=== PATIENT | female | born 1950 | race Caucasian/White ===

== ENCOUNTER → 2017-04-04 | Outpatient (CLI) | payer OTHER ==
[~2017-04-04] MED LIST: ALBU8.5H8 INH; CEFD300C37 PO; FOLI-17 PO; INFL100V IV; LEVO750T26 PO; METH2.5T PO; ONDA4TAB10 PO; PRED5TAB PO; TRIA50CA PO
== END | disposition home or self-care (01) ==
LOC: RAD 10:27 → MERGE 11:00
PROVIDERS: ATTEND Physician Assistant
DX: M22.41 Chondromalacia patellae, right knee (principal); M71.21 Synovial cyst of popliteal space [Baker], right knee; M17.11 Unilateral primary osteoarthritis, right knee; M25.461 Effusion, right knee

== ENCOUNTER 2017-05-07 05:20 | Inpatient (IN) | payer OTHER, MEDICARE ==
[2017-05-06 08:57] VITALS: BP 135/89
[~2017-05-07] VITALS: Ht 167.6 cm; Wt 72.0 kg
[~2017-05-07 05:20] MED LIST changes: +ASCO100019 PO; +B CO1TAB14 PO; +BIOT10TA PO; +CALC1CAP8 PO; +CHOL100011 PO; +LACT1CAP24 PO; +SELE200T10 PO; +[UNRECOGNIZED DRUG - OTHER] PO; +[UNRECOGNIZED DRUG - OTHER] PO; +[UNRECOGNIZED DRUG - OTHER] PO; +magnesium PO; +potassium PO
[2017-05-07] MEDS ORDERED: LACTATED RINGERS 1,000 ML IV SCH (05:56)
[2017-05-07] MEDS ORDERED: LIDOCAINE-MPF 1%, 2ML INFIL ONE (06:00)
[2017-05-07] MEDS ORDERED: VANCOMYCIN PER PHARMACY MC ONE (06:00)
[2017-05-07] MEDS ORDERED: MIDAZOLAM 1 MG/ML, 2ML ONE (06:26)
[2017-05-07] MEDS ORDERED: FENTANYL PF 250 MCG/5ML ONE ×2 (06:27)
[2017-05-07] MEDS ORDERED: VANCOMYCIN PMX 1GM/200ML 200 ML IV ONE (06:30)
[2017-05-07] MEDS ORDERED: PNEUMOCOCCAL 23 VACCINE IM-VACC ONE (06:30)
[2017-05-07] MEDS ORDERED: GABAPENTIN 300 MG CAPSULE ONE (06:38)
[2017-05-07] MEDS ORDERED: KETAMINE 10 MG/ML, 20ML ONE (07:00)
[2017-05-07] MEDS ORDERED: DIAZEPAM 5 MG TABLET PO ONE (07:00)
[2017-05-07] MEDS ORDERED: TAMSULOSIN 0.4 MG CAP.ER.24H PO ONE (07:00)
[2017-05-07] MEDS ORDERED: GABAPENTIN 300 MG CAPSULE PO ONE (07:00)
[2017-05-07] MEDS ORDERED: ACETAMINOPHEN 500 MG TABLET PO ONE (07:00)
[2017-05-07] MEDS ORDERED: FAMOTIDINE 20 MG TABLET PO ONE (07:00)
[2017-05-07] MEDS ORDERED: METOCLOPRAMIDE 10MG TABLET PO ONE (07:00)
[2017-05-07] MEDS ORDERED: TRANEXAMIC ACID 100 MG/ML, 10ML ONE ×3 (07:02)
[2017-05-07] MEDS ORDERED: EPINEPHRINE 1 MG/ML, 1ML ONE (07:02)
[2017-05-07] MEDS ORDERED: BUPIVACAINE/PF 0.5% ONE (07:02)
[2017-05-07] MEDS ORDERED: NEOSPORIN OINT, 15GM ONE (08:07)
[2017-05-07] MEDS ORDERED: OXYcodone 5 MG/5 ML ORAL.SOL UDC ONE (09:44)
[2017-05-07] MEDS ORDERED: FENTANYL PF 100 MCG/2ML ONE ×2 (09:44→10:02)
[2017-05-07] MEDS: FENTANYL PF 100 MCG/2ML IV PRN ×4 (09:47→10:30)
[2017-05-07] MEDS ORDERED: morphine SULFATE 10 MG/ML, 1ML ONE (09:51)
[2017-05-07] MEDS: morphine SULFATE 10 MG/ML, 1ML IV PRN ×6 (09:53→23:54)
[2017-05-07] MEDS ORDERED: MEPERIDINE/PF 50 MG/ML ONE (09:58)
[2017-05-07] MEDS ORDERED: OXYcodone 5 MG/5 ML ORAL.SOL UDC PO PRN (10:00)
[2017-05-07] MEDS ORDERED: PROMETHAZINE 25 MG/ML, 1ML IV PRN (10:00)
[2017-05-07] MEDS ORDERED: ALBUTEROL SULFATE 2.5 MG/3 ML NPPB PRN (10:00)
[2017-05-07] MEDS ORDERED: DIAZEPAM 5 MG/ML, 2ML IVPush PRN (10:00)
[2017-05-07] MEDS ORDERED: MEPERIDINE/PF 25MG/0.5ML IVPush PRN (10:00)
[2017-05-07] MEDS ORDERED: ONDANSETRON 2MG/ML, 2ML IVPush PRN (10:00)
[2017-05-07] MEDS ORDERED: PROMETHAZINE 25 MG SUPP PR PRN (12:00)
[2017-05-07] MEDS ORDERED: ACETAMINOPHEN 325 MG TABLET PO PRN (12:00)
[2017-05-07] MEDS ORDERED: ONDANSETRON ODT 4 MG PO PRN (12:00)
[2017-05-07] MEDS: SCOPOLAMINE PATCH, 1.5MG PATCH.TD72 TD SCH ×2 (12:00→15:56)
[2017-05-07] MEDS ORDERED: ALUMINUM/MAG/SIMETHICONE 30 ML UDC PO PRN (12:00)
[2017-05-07] MEDS ORDERED: DIPHENHYDRAMINE 25 MG CAPSULE PO PRN (12:00)
[2017-05-07] MEDS ORDERED: BISACODYL 10 MG SUPP PR PRN (12:00)
[2017-05-07] MEDS ORDERED: MAGNESIUM HYDROXIDE 8%, 30ML UDC PO PRN (12:00)
[2017-05-07] MEDS ORDERED: SENNA/DOCUSATE TABLET PO PRN (12:00)
[2017-05-07 12:57] VITALS: BP 133/75
[2017-05-07] MEDS: ONDANSETRON 2MG/ML, 2ML IVPush PRN ×2 (13:45→17:51)
[2017-05-07] MEDS: OXYcodone IR 5MG TABLET PO PRN ×3 (14:40→22:01)
[2017-05-07] MEDS: CEFAZOLIN PMX 1GM/50ML 50 ML IVPB SCH ×2 (15:54→23:01)
[2017-05-07] MEDS ORDERED: ROCURONIUM 10 MG/ML,10ML ONE (16:06)
[2017-05-07] MEDS ORDERED: DEXAMETHASONE 4 MG/ML, 1ML ONE (16:06)
[2017-05-07] MEDS ORDERED: CEFAZOLIN 1,000 MG ONE (16:06)
[2017-05-07] MEDS ORDERED: SUCCINYLCHOLINE 20 MG/ML, 10ML ONE (16:06)
[2017-05-07] MEDS ORDERED: PROPOFOL 10 MG/ML, 20ML ONE (16:06)
[2017-05-07] MEDS: SODIUM CHLORIDE 0.9% 1,000 ML IV SCH (18:02)
[2017-05-07] MEDS: HYDROcodone/APAP 10/325 MG TABLET PO PRN (19:37)
[2017-05-07 19:57] VITALS: BP 126/72
[2017-05-07] MEDS: DOCUSATE 100 MG CAPSULE PO SCH (20:42)
[2017-05-08 00:16] VITALS: BP 113/62
[2017-05-08] MEDS: morphine SULFATE 10 MG/ML, 1ML IV PRN ×2 (03:42→05:04)
[2017-05-08 04:00] VITALS: BP 147/69
[2017-05-08] MEDS: OXYcodone IR 5MG TABLET PO PRN ×5 (04:17→20:31)
[2017-05-08] MEDS: SODIUM CHLORIDE 0.9% 1,000 ML IV SCH ×2 (04:17→14:00)
[2017-05-08] MEDS: HYDROcodone/APAP 10/325 MG TABLET PO PRN (05:44)
[2017-05-08] MEDS ORDERED: DEXAMETHASONE 10 MG in SODIUM CHLORIDE 0.9% 50 ML IV ONE (06:00)
[2017-05-08] MEDS: ASPIRIN 325 MG TABLET EC PO SCH ×2 (06:00→18:03)
[2017-05-08 06:47] VITALS: BP 134/66
[2017-05-08] MEDS: MULTIVITAMINS/MINERALS TABLET PO SCH (08:21)
[2017-05-08] MEDS: KETOROLAC 30 MG/1 ML IV SCH ×2 (08:21→16:42)
[2017-05-08] MEDS: DOCUSATE 100 MG CAPSULE PO SCH ×2 (08:22→20:30)
[2017-05-08] MEDS: CHOLECALCIFEROL 1,000 UNIT TABLET PO SCH (08:23)
[2017-05-08] MEDS: MAGNESIUM OXIDE 400 MG TABLET PO SCH (08:23)
[2017-05-08] MEDS: CALCIUM/VITAMIN D3 250-125 TABLET PO SCH (08:23)
[2017-05-08] MEDS: LACTOBACILLUS CHEW TABLET PO SCH (08:23)
[2017-05-08] MEDS ORDERED: KETOROLAC 30 MG/1 ML IV SCH (12:00)
[2017-05-08 13:19] VITALS: BP 117/68
[2017-05-08 19:24] VITALS: BP 100/58
[2017-05-09] MEDS: KETOROLAC 30 MG/1 ML IV SCH (00:07)
[2017-05-09 01:12] VITALS: BP 101/55
[2017-05-09] MEDS: ASPIRIN 325 MG TABLET EC PO SCH ×2 (05:14→18:01)
[2017-05-09] MEDS: OXYcodone IR 5MG TABLET PO PRN ×6 (05:14→22:39)
[2017-05-09 08:08] VITALS: BP 135/74
[2017-05-09] MEDS: DOCUSATE 100 MG CAPSULE PO SCH ×2 (08:51→20:54)
[2017-05-09] MEDS: MAGNESIUM OXIDE 400 MG TABLET PO SCH (08:51)
[2017-05-09] MEDS: MULTIVITAMINS/MINERALS TABLET PO SCH (08:51)
[2017-05-09] MEDS: CHOLECALCIFEROL 1,000 UNIT TABLET PO SCH (08:51)
[2017-05-09] MEDS: LACTOBACILLUS CHEW TABLET PO SCH (08:51)
[2017-05-09] MEDS: CALCIUM/VITAMIN D3 250-125 TABLET PO SCH (08:52)
[2017-05-09] MEDS: SODIUM CHLORIDE 0.9% 1,000 ML IV SCH ×3 (10:00→20:15)
[2017-05-09] MEDS: CYCLOBENZAPRINE 10 MG TABLET PO PRN ×2 (10:40→18:33)
[2017-05-09] MEDS ORDERED: OXYC-307 PO (11:12)
[2017-05-09] MEDS ORDERED: MELO15TA24 PO (11:13)
[2017-05-09] MEDS ORDERED: ASPI-650 PO (11:13)
[2017-05-09 14:10] VITALS: BP 152/73
[2017-05-09 19:36] VITALS: BP 125/70
[2017-05-10 02:04] VITALS: BP 117/69
[2017-05-10] MEDS: OXYcodone IR 5MG TABLET PO PRN ×3 (03:26→12:15)
[2017-05-10] MEDS: CYCLOBENZAPRINE 10 MG TABLET PO PRN (05:40)
[2017-05-10] MEDS: ASPIRIN 325 MG TABLET EC PO SCH (05:40)
[2017-05-10] MEDS: SODIUM CHLORIDE 0.9% 1,000 ML IV SCH ×2 (05:41→11:28)
[2017-05-10] MEDS: MAGNESIUM OXIDE 400 MG TABLET PO SCH (07:49)
[2017-05-10] MEDS: DOCUSATE 100 MG CAPSULE PO SCH (07:49)
[2017-05-10] MEDS: MULTIVITAMINS/MINERALS TABLET PO SCH (07:49)
[2017-05-10] MEDS: CALCIUM/VITAMIN D3 250-125 TABLET PO SCH (07:49)
[2017-05-10] MEDS: LACTOBACILLUS CHEW TABLET PO SCH (07:49)
[2017-05-10] MEDS: CHOLECALCIFEROL 1,000 UNIT TABLET PO SCH (07:49)
[2017-05-10] MEDS ORDERED: OXYC-307 PO (08:07)
[2017-05-10] MEDS ORDERED: MELO15TA24 PO (08:08)
[2017-05-10] MEDS ORDERED: ASPI325T17 PO (08:08)
[2017-05-10 09:13] VITALS: BP 117/76
[2017-05-10] MEDS: SCOPOLAMINE PATCH, 1.5MG PATCH.TD72 TD SCH (11:28)
== END 2017-05-10 13:45 | disposition home or self-care (01) | DRG 462 ==
LOC: ORIP 05:21 → 4NOR 11:08
PROVIDERS: ADMIT Orthopaedic Surgery Adult Reconstructive Orthopaedic Surgery; ATTEND Orthopaedic Surgery Adult Reconstructive Orthopaedic Surgery
PROC: 0SRD069 Replacement of Left Knee Joint with Oxidized Zirconium on Polyethylene Synthetic Substitute, Cemented, Open Approach (ICD-10-PCS; principal; 2017-05-08)
PROC: 0SRC069 Replacement of Right Knee Joint with Oxidized Zirconium on Polyethylene Synthetic Substitute, Cemented, Open Approach (ICD-10-PCS; 2017-05-08)
DX: M17.0 Bilateral primary osteoarthritis of knee (principal); Z79.899 Other long term (current) drug therapy
CPT/HCPCS: 36415; 85014; 85018; C1713; J0171; J0690; J1100; J1885; J2175; J2250; J2405; J2704; J3010; J3370; J3490; C1776; J0330; J2270; J7030; J7120

== ENCOUNTER → 2017-07-01 | Outpatient (CLI) | payer OTHER ==
[~2017-07-01] MED LIST changes: +ASPI-650 PO; +ASPI325T17 PO; +MELO15TA24 PO; +OXYC-307 PO
[2017-07-01 11:10] LABS: BASOPHILS # (AUTO) 0.04 x10^3/uL (0-0.1); BASOPHILS % (AUTO) 1 % (0-1); EOSINOPHILS # (AUTO) 0.26 x10^3/uL (0-0.4); EOSINOPHILS % (AUTO) 3 % (1-7); LYMPHOCYTES # (AUTO) 2.38 x10^3/uL (1-3.4); LYMPHOCYTES % (AUTO) 24 % (22-44); MD NO; MEAN CORPUSCULAR HEMOGLOBIN 28.3 pg (27.0-34.8); MEAN CORPUSCULAR HGB CONC 32.9 g/dL (32.4-35.8); MEAN PLATELET VOLUME 9.2 fL (7.4-10.4); MONOCYTES # (AUTO) 0.81 x10^3/uL (0.2-0.8); MONOCYTES % (AUTO) 8 % (2-9); NEUTROPHILS # (AUTO) 6.36 x10^3/uL (1.8-6.8); NEUTROPHILS % (AUTO) 65 % (42-75); PLATELET COUNT 325 x10^3/uL (130-400); RED BLOOD COUNT 4.07 x10^6/uL (3.82-5.3); RED CELL DISTRIBUTION WIDTH 15.3 % (9.6-15.2)
[2017-07-01 11:21] LABS: ALANINE AMINOTRANSFERASE 18 U/L (12-78); ANION GAP 7 mmol/L (5-15); CALCIUM 9.3 mg/dL (8.5-10.1); CHLORIDE 106 mmol/L (98-107); CREATININE 0.71 mg/dL (0.55-1.02)
[2017-07-01 11:23] LABS: ALKALINE PHOSPHATASE 98 U/L (45-117); BILIRUBIN,TOTAL 0.3 mg/dL (0.2-1.0); TOTAL PROTEIN 8.1 g/dL (6.4-8.2)
== END | disposition home or self-care (01) ==
LOC: LAB 10:55
PROVIDERS: ATTEND Specialist
DX: M05.79 Rheumatoid arthritis with rheumatoid factor of multiple sites without organ or systems involvement (principal); Z92.25 Personal history of immunosuppression therapy
CPT/HCPCS: 36415; 80053; 85025

== ENCOUNTER 2020-10-15 10:44 | Emergency (ER) | payer OTHER ==
[~2020-10-15] VITALS: Ht 167.6 cm; Wt 65.0 kg
[~2020-10-15 10:44] MED LIST changes: +ASPI-1026 PO; -ASPI-650 PO; -FOLI-17 PO; +FOLI1TAB32 PO; -OXYC-307 PO; +OXYC-501 PO
[2020-10-15 10:45] VITALS: BP 147/72
--- NOTE | 2020-10-15 10:45 | NUR ---
PT STRAIGHT TO BACK TO ROOM 17, PT STATES SHE HAS NOT BEEN ABLE TO BEND HER KNEE AT WORK TODAY. PT STATES SHE THINKS ITS A POSSIBLE KNEE INFECTION. HX OF L-KNEE REPLACEMENT. ERYTHEMA, DISCHARGE NOTED ON L-KNEE INCISION
[2020-10-15] MEDS ORDERED: LIDOCAINE-MPF 1%, 5ML ONE (10:48)
--- NOTE | 2020-10-15 10:52 | NUR ---
ERP AT BS FOR I&D
[2020-10-15] MEDS ORDERED: AMOXICILLIN/CLAV 875-125MG TABLET ONE (10:53)
--- NOTE | 2020-10-15 10:57 | NUR ---
PT MEDICATED PER EMAR. PT TOLERATED I&D WELL. ERP AT BS
[2020-10-15] MEDS ORDERED: AMOXICILLIN/CLAV 875-125MG TABLET PO ONE (11:00)
--- NOTE | 2020-10-15 11:59 | NUR ---
PT BACK FROM XR
[2020-10-15 12:05] LABS: BASOPHILS % (AUTO) 1 % (0-1); EOSINOPHILS % (AUTO) 0 % (1-7); LYMPHOCYTES % (AUTO) 15 % (22-44); MEAN CORPUSCULAR HEMOGLOBIN 27.6 pg (27.0-34.8); MEAN CORPUSCULAR HGB CONC 33.2 g/dL (32.4-35.8); MEAN PLATELET VOLUME 9.1 fL (7.4-10.4); MONOCYTES % (AUTO) 8 % (2-9); NEUTROPHILS % (AUTO) 76 % (42-75); PLATELET COUNT 288 x10^3/uL (130-400); RED BLOOD COUNT 4.31 x10^6/uL (3.82-5.3); RED CELL DISTRIBUTION WIDTH 14.6 % (9.6-15.2)
[2020-10-15 12:06] LABS: HCT (SEDRATE) 35.8 % (34.6-47.8)
--- NOTE | 2020-10-15 12:14 | NUR ---
PT ABSCESS WRAPPED, NADN. PT TOELRATED WELL
--- NOTE | 2020-10-15 12:18 | NUR ---
Patient given discharge instructions and RX, they have confirmed that they understand the instructions. Patient ambulatory with steady gait.
== END 2020-10-15 12:20 | disposition home or self-care (01) ==
LOC: ED 12:14
DX: L02.416 Cutaneous abscess of left lower limb (principal); M06.9 Rheumatoid arthritis, unspecified
CPT/HCPCS: 10060; 36415; 85025; 85651; 86140; 87070; 87077; 87186; 87205